=== PATIENT | male | born 2005 | race Hispanic/Latino ===

== ENCOUNTER 2023-05-31 06:26 | Emergency (ER) | payer SELFPAY ==
[2023-05-31] MEDS ORDERED: Ondansetron PF 4 MG/2 ML Vial ONE (07:18)
[2023-05-31] MEDS ORDERED: Ketorolac Tromethamine 30 MG (1 mL) VIAL ONE (07:18)
[2023-05-31] MEDS ORDERED: Morphine 4 MG/ML VIAL ONE (07:18)
[2023-05-31 07:32] LABS: Hematocrit 40.1 % (42.0-52.0); Hemoglobin 13.7 g/dL (14.0-18.0); Mean Corpuscular HGB CONC 34.2 g/dL (32.0-36.0); Mean Corpuscular Hemoglobin 30.7 pg (25.0-35.0); Mean Corpuscular Volume 89.9 fl (78.0-98.0); Mean Platelet Volume 8.8 fL (7.4-10.4); Platelet Count 125 10x3/uL (130-400); Red Blood Cell (RBC) Count 4.46 mill/uL (4.00-5.20); White Blood Cell (WBC) Count 26.6 10x3/uL (4.8-10.8)
[2023-05-31 07:39] LABS: ALT (SGPT) 224 U/L (8-55); AST (SGOT) 98 U/L (10-45); Albumin 4.5 g/dL (3.5-5.0); Alkaline Phosphatase 58 U/L (50-130); Anion Gap 15 mmol/L (10-20); BUN (Urea Nitrogen) 15 mg/dL (8.4-21.0); Bilirubin, Total 0.4 mg/dL (0.2-1.2); Calc. Creatinine Clearance 0 mL/min (70-130); Carbon Dioxide 23 mmol/L (22-29); Chloride 105 mmol/L (98-107); Estimated GFR 114; Globulin 2.7 g/dL (2.4-3.5); Glucose 122 mg/dL (70-105); Potassium 3.9 mmol/L (3.5-5.1); Protein, Total 7.2 g/dL (6.0-8.3); Sodium 139 mmol/L (136-145)
[2023-05-31 08:10] LABS: Band 3 % (5-11); Lymphocytes 27 % (28-48); Monocytes 1 % (0-4); Neutrophil 9 % (31-61); Platelet Adequacy Comment Platelets Decreased; Reflex for Review?? YES
[2023-05-31 10:24] LABS: Bacteria/HPF None Seen HPF (None Seen); Bilirubin Negative (Negative); Blood, Urine Negative (Negative); CAUTI Indications for Culture Pelvic or flank pain; Clarity Clear (Clear); Glucose, Urine (Dipstick) Normal (Negative); Ketone, Urine Negative (Negative); Leukocyte Negative Leu/uL (Negative); Nitrite Negative (Negative); Protein, Urine (Dipstick) Negative (Neg-Trace); RBC/HPF 0-3 HPF (0-3); Specific Gravity, Urine 1.044 (1.002-1.036); Squamous Epithelial None Seen HPF (0-3); Urobilinogen Normal mg/dL (Less than 2); WBC/HPF 0-3 HPF (0-3)
[2023-05-31 10:26] LABS: Urine Culture Reflex No No
[2023-05-31 12:12] LABS: Blast 61 % (0-0)
[2023-05-31] MEDS ORDERED: Iopamidol 370 76% 100 ML VIAL ONE (12:45)
== END 2023-05-31 10:49 | disposition home or self-care (01) ==
LOC: EDBD 06:26 → ERS 06:26
DX: M54.50 Low back pain, unspecified (principal); R74.01 Elevation of levels of liver transaminase levels
CPT/HCPCS: 36415; 74177; 80053; 81001; 83605; 85025; 85060; 88184; 96374; 96375; J1885; J2270; J2405; Q9967

== ENCOUNTER 2023-09-13 11:08 | Emergency (ER) | payer SELFPAY ==
[2023-09-13 12:27] LABS: #Basophils Less than 0.03 10x3/uL (0.0-0.2); #Eosinphils Less than 0.03 10x3/uL (0.0-0.7); %Eosinophils 0.5 % (0.0-10.0); %Lymphocytes 2.7 % (28.0-48.0); %Monocytes 13.6 % (0.0-4.0); %Neutrophils 81.8 % (31.0-61.0); Hematocrit 32.4 % (42.0-52.0); Hemoglobin 10.8 g/dL (14.0-18.0); Mean Corpuscular HGB CONC 33.3 g/dL (32.0-36.0); Mean Corpuscular Hemoglobin 30.3 pg (25.0-35.0); Mean Corpuscular Volume 90.8 fL (78.0-98.0); Platelet Count 9 10x3/uL (130-400); RBC Distribution Width 17.2 % (11.5-14.5); Red Blood Cell (RBC) Count 3.57 mill/uL (4.00-5.20)
[2023-09-13] MEDS ORDERED: Ondansetron PF 4 MG/2 ML Vial ONE (12:36)
[2023-09-13] MEDS ORDERED: Morphine 4 MG/ML VIAL ONE (12:36)
[2023-09-13 13:00] LABS: Anisocytosis SLIGHT = 6-15 cells HPF (0-5); Hypochromia SLIGHT = 6-15 cells HPF (0-5); Macrocytosis SLIGHT = 6-15 cells HPF (0-5); Platelet Adequacy Comment Significant Decrease; Polychromasia SLIGHT = 2-3 cells HPF (0-2)
[2023-09-13 13:01] LABS: Lipase 2856 U/L (8-78)
[2023-09-13 13:02] LABS: ALT (SGPT) 60 U/L (8-55); AST (SGOT) 36 U/L (10-45); Albumin 3.4 g/dL (3.5-5.0); Alkaline Phosphatase 102 U/L (50-130); Anion Gap 23 mmol/L (10-20); BUN (Urea Nitrogen) 22 mg/dL (8.4-21.0); Bilirubin, Total 0.9 mg/dL (0.2-1.2); Calc. Creatinine Clearance 0 mL/min (70-130); Calcium 9.8 mg/dL (7.8-10.44); Carbon Dioxide 15 mmol/L (22-29); Chloride 105 mmol/L (98-107); Estimated GFR 130; Globulin 3.1 g/dL (2.4-3.5); Glucose 98 mg/dL (70-105); Potassium 4.4 mmol/L (3.5-5.1); Protein, Total 6.5 g/dL (6.0-8.3); Sodium 139 mmol/L (136-145)
[2023-09-13] MEDS ORDERED: Cefepime 2 GM VIAL ONE (13:28)
[2023-09-13] MEDS ORDERED: Vancomycin 1 GM/200 ML (FROZEN) BAG ONE (13:45)
[2023-09-13] MEDS ORDERED: Iopamidol-370 76% 500 ML MDV (1 ML CHARGE) ONE (15:47)
== END 2023-09-13 16:11 | disposition short-term general hospital (02) ==
LOC: ERS 11:08
DX: C95.90 Leukemia, unspecified not having achieved remission (principal); K85.90 Acute pancreatitis without necrosis or infection, unspecified; D61.818 Other pancytopenia; A41.9 Sepsis, unspecified organism
CPT/HCPCS: 36415; 36416; 36430; 74177; 80053; 83605; 83690; 85025; 86850; 86900; 86901; 87040; 87077; 87149; 87186; 96374; 96375; J0692; J2270; J2405; J3370-JW; P9035; Q9967